=== PATIENT | male | born 1995 | race African-American/Black ===

== ENCOUNTER 2016-08-16 19:08 | Emergency (ER) | payer MEDICAID ==
[~2016-08-16] VITALS: Ht 170.2 cm; Wt 68.0 kg
[2016-08-16] MEDS ORDERED: ONDANSETRON HCL 4MG/2ML VIAL IV STA (19:32)
[2016-08-16] MEDS ORDERED: KETOROLAC 30MG/ML VIAL IV STA (19:32)
[2016-08-16] MEDS ORDERED: SODIUM CHLORIDE 0.9% 1,000 ML IV ONE (19:32)
[2016-08-16 20:44] LABS: ALANINE AMINOTRANSFERASE 21 IU/L (13-61); ALBUMIN 3.6 g/dL (3.4-5.0); ANION GAP 13; BASOPHILS % 1.5 % (0.0-2.0); CALCIUM 8.5 mg/dL (8.5-10.1); CARBON DIOXIDE 28 mEq/L (21-32); CHLORIDE 107 mEq/L (98-107); EOSINOPHILS % 2.7 % (0.0-5.0); ETHANOL BLOOD < 10 mg/dL; HEMATOCRIT. 42.6 % (42.0-52.0); INDEX HEMOLYSI 3 (1-3); INDEX ICTERIC 1 (1-4); INDEX LIPEMIC 2 (1-3); LYMPHOCYTES % 50.5 % (20.0-50.0); MEAN CORPUSCULAR HGB CONC 32.9 g/dL (31.0-37.0); MEAN CORPUSCULAR VOLUME 91.2 fL (80.0-94.0); MEAN PLATELET VOLUME 8.5 fl (7.4-10.4); MONOCYTES % 11.4 % (2.0-8.0); NEUTROPHILS % 33.9 % (40.0-76.0); PLATELET 204 x1000/uL (130-400); RED BLOOD CELL COUNT 4.67 mill/uL (4.7-6.1); UREA NITROGEN BLOOD 9 mg/dL (7-21); WHITE BLOOD COUNT 4.5 x1000/uL (4.5-11.0); eGFR > 60 mL/min (>60)
[2016-08-17 00:59] LABS: CLARITY URINE CLOUDY (CLEAR); COLOR URINE YELLOW (YELLOW); GLUCOSE URINE NEGATIVE (NEGATIVE); KETONES URINE TRACE (NEGATIVE); LEUKOCYTE ESTERASE URINE 1+ (NEGATIVE); NITRITE URINE NEGATIVE (NEGATIVE); OCCULT BLOOD URINE NEGATIVE (NEGATIVE); PROTEIN URINE NEGATIVE (NEGATIVE); SPECIFIC GRAVITY URINE 1.038 (1.005-1.030)
[2016-08-17 01:11] LABS: *AMPHETAMINES SCREEN URINE PRESUMTIVE POSITIVE (NEGATIVE); *BARBITURATES SCREEN URINE NEGATIVE (NEGATIVE); *BENZODIAZEPINES SCREEN URINE NEGATIVE (NEGATIVE); *COCAINE SCREEN URINE NEGATIVE (NEGATIVE); CANNABINOID URINE SCREEN PRESUMTIVE POSITIVE (NEGATIVE); ECSTASY MDMA SCREEN URINE NEGATIVE (NEGATIVE); METHADONE URINE SCREEN NEGATIVE (NEGATIVE); OPIATES URINE SCREEN NEGATIVE (NEGATIVE); PHENCYCLIDINE URINE SCREEN NEGATIVE (NEGATIVE)
[2016-08-17 01:21] LABS: SQUAMOUS EPITHELIAL CELL URINE FEW /lpf (RARE/1+); WBC URINE 25-50 /hpf (0-2)
[2016-08-17 01:22] LABS: RBC URINE 0-2 /hpf (0-2)
[2016-08-17 01:23] LABS: BACTERIA URINE NONE SEEN
[2016-08-17 13:59] VITALS: BP 117/70
== END 2016-08-17 14:16 | disposition home or self-care (01) ==
LOC: ER 21:20
DX: G43.909 Migraine, unspecified, not intractable, without status migrainosus (principal); F20.9 Schizophrenia, unspecified; F17.200 Nicotine dependence, unspecified, uncomplicated; F14.10 Cocaine abuse, uncomplicated; F12.10 Cannabis abuse, uncomplicated; F15.10 Other stimulant abuse, uncomplicated; Z59.0 Homelessness
CPT/HCPCS: 36415; 80053; 80305; 81001; 85025; 96361; 96374; 96375; 99284; G0482; J1885; J2405; J7030; 81003

== ENCOUNTER 2016-08-26 18:41 | Emergency (ER) | payer MEDICAID ==
[~2016-08-26] VITALS: Ht 170.2 cm; Wt 73.0 kg
[2016-08-26 19:09] VITALS: BP 127/76
== END 2016-08-26 20:55 | disposition left against medical advice (07) ==
LOC: ER 19:48
DX: Z53.21 Procedure and treatment not carried out due to patient leaving prior to being seen by health care provider (principal)

== ENCOUNTER 2017-05-07 00:30 | Emergency (ER) | payer MEDICAID ==
[~2017-05-07] VITALS: Ht 165.1 cm; Wt 63.0 kg
[2017-05-07 00:37] VITALS: BP 131/76
== END 2017-05-07 01:30 | disposition left against medical advice (07) ==
LOC: ER 00:30
DX: Z76.0 Encounter for issue of repeat prescription (principal); Z53.21 Procedure and treatment not carried out due to patient leaving prior to being seen by health care provider

== ENCOUNTER 2017-05-07 07:28 | Emergency (ER) | payer MEDICAID ==
[~2017-05-07] VITALS: Ht 170.2 cm; Wt 66.0 kg
[2017-05-07 07:36] VITALS: BP 131/86
== END 2017-05-07 12:30 | disposition left against medical advice (07) ==
LOC: ER 07:59
DX: Z53.21 Procedure and treatment not carried out due to patient leaving prior to being seen by health care provider (principal)

== ENCOUNTER 2017-11-22 04:30 | Emergency (ER) | payer SELFPAY ==
[~2017-11-22] VITALS: Ht 167.6 cm; Wt 65.0 kg
[2017-11-22 04:41] VITALS: BP 134/63
== END 2017-11-22 08:22 | disposition home or self-care (01) ==
LOC: ER 05:25
DX: M25.512 Pain in left shoulder (principal); F32.89 Other specified depressive episodes; F17.200 Nicotine dependence, unspecified, uncomplicated; F12.10 Cannabis abuse, uncomplicated; F15.10 Other stimulant abuse, uncomplicated
CPT/HCPCS: 99281

== ENCOUNTER 2019-06-17 18:25 | Emergency (ER) | payer MEDICAID | END 2019-06-17 20:50 | disposition left against medical advice (07) | LOC: ER 18:25 | DX: R51 Headache (principal); Z53.21 Procedure and treatment not carried out due to patient leaving prior to being seen by health care provider ==

== ENCOUNTER 2019-10-22 13:38 | Emergency (ER) | payer MEDICAID ==
[~2019-10-22] VITALS: Ht 170.2 cm; Wt 68.0 kg
[2019-10-22 14:42] LABS: CHLORIDE 107 mEq/L (98-107)
[2019-10-22 14:46] LABS: BASOPHILS % 1.5 % (0.0-2.0); EOSINOPHILS % 4.1 % (0.0-5.0); HEMATOCRIT. 40.2 % (42.0-52.0); HEMOGLOBIN. 13.5 g/dL (14.0-18.0); LYMPHOCYTES % 35.1 % (20.0-50.0); MEAN CORPUSCULAR HEMOGLOBIN 29.9 pg (28.0-32.0); MEAN CORPUSCULAR VOLUME 89.3 fL (80.0-94.0); MONOCYTES % 14.8 % (2.0-8.0); NEUTROPHILS % 44.5 % (40.0-76.0); PLATELET 255 x1000/uL (130-400); RED CELL DISTRIBUTION WIDTH 13.4 % (11.6-14.6)
[2019-10-22 14:48] LABS: ETHANOL BLOOD 35 mg/dL
[2019-10-22 15:30] LABS: CLARITY URINE CLEAR (CLEAR); COLOR URINE YELLOW (YELLOW); KETONES URINE TRACE (NEGATIVE); LEUKOCYTE ESTERASE URINE NEGATIVE (NEGATIVE); NITRITE URINE NEGATIVE (NEGATIVE); OCCULT BLOOD URINE NEGATIVE (NEGATIVE); PROTEIN URINE NEGATIVE (NEGATIVE); SPECIFIC GRAVITY URINE 1.029 (1.005-1.030)
[2019-10-22 16:04] LABS: *AMPHETAMINES SCREEN URINE PRESUMTIVE POSITIVE (NEGATIVE); CANNABINOID URINE SCREEN PRESUMTIVE POSITIVE (NEGATIVE); OPIATES URINE SCREEN NEGATIVE (NEGATIVE); PHENCYCLIDINE URINE SCREEN PRESUMTIVE POSITIVE (NEGATIVE)
[2019-10-22 16:07] LABS: *BARBITURATES SCREEN URINE NEGATIVE (NEGATIVE)
[2019-10-22 16:25] LABS: *COCAINE SCREEN URINE PRESUMTIVE POSITIVE (NEGATIVE); METHADONE URINE SCREEN NEGATIVE (NEGATIVE)
[2019-10-22 16:26] LABS: *BENZODIAZEPINES SCREEN URINE NEGATIVE (NEGATIVE)
[2019-10-22 20:01] VITALS: BP 121/69
== END 2019-10-22 20:32 | disposition home or self-care (01) ==
LOC: ER 13:38
DX: R45.851 Suicidal ideations (principal); F20.9 Schizophrenia, unspecified; Z91.14 Patient's other noncompliance with medication regimen; F14.10 Cocaine abuse, uncomplicated; F16.10 Hallucinogen abuse, uncomplicated; F15.10 Other stimulant abuse, uncomplicated; F12.10 Cannabis abuse, uncomplicated; F10.10 Alcohol abuse, uncomplicated; Y90.1 Blood alcohol level of 20-39 mg/100 ml; Z59.0 Homelessness
CPT/HCPCS: 36415; 80053; 80305; 80320; 81003; 85025; 99284; G0480

== ENCOUNTER 2020-07-11 22:13 | Emergency (ER) | payer MEDICAID, OTHER ==
[~2020-07-11] VITALS: Ht 175.3 cm; Wt 75.0 kg
[2020-07-11] MEDS ORDERED: OLANZAPINE 5MG TABLET PO SCH (23:00)
[2020-07-11 23:04] LABS: CLARITY URINE CLEAR (CLEAR); COLOR URINE YELLOW (YELLOW); KETONES URINE TRACE (NEGATIVE); LEUKOCYTE ESTERASE URINE NEGATIVE (NEGATIVE); NITRITE URINE NEGATIVE (NEGATIVE); OCCULT BLOOD URINE NEGATIVE (NEGATIVE); PH URINE 5.5 (4.5-8.0); PROTEIN URINE NEGATIVE (NEGATIVE)
[2020-07-11 23:11] LABS: BASOPHILS % 1.1 % (0.0-2.0); EOSINOPHILS % 4.5 % (0.0-5.0); HEMATOCRIT. 41.2 % (42.0-52.0); HEMOGLOBIN. 13.5 g/dL (14.0-18.0); LYMPHOCYTES % 34.5 % (20.0-50.0); MEAN CORPUSCULAR HEMOGLOBIN 29.6 pg (28.0-32.0); MEAN CORPUSCULAR VOLUME 90.6 fL (80.0-94.0); MONOCYTES % 11.7 % (2.0-8.0); NEUTROPHILS % 48.2 % (40.0-76.0); PLATELET 218 x1000/uL (130-400); RED BLOOD CELL COUNT 4.55 mill/uL (4.7-6.1); RED CELL DISTRIBUTION WIDTH 13.3 % (11.6-14.6)
[2020-07-11 23:14] LABS: *AMPHETAMINES SCREEN URINE PRESUMTIVE POSITIVE (NEGATIVE); *BARBITURATES SCREEN URINE NEGATIVE (NEGATIVE); *BENZODIAZEPINES SCREEN URINE NEGATIVE (NEGATIVE); *COCAINE SCREEN URINE NEGATIVE (NEGATIVE); METHADONE URINE SCREEN NEGATIVE (NEGATIVE); OPIATES URINE SCREEN NEGATIVE (NEGATIVE)
[2020-07-11 23:15] LABS: CANNABINOID URINE SCREEN PRESUMTIVE POSITIVE (NEGATIVE); PHENCYCLIDINE URINE SCREEN NEGATIVE (NEGATIVE)
[2020-07-11 23:19] LABS: CHLORIDE 109 mEq/L (98-107)
[2020-07-11 23:23] LABS: ETHANOL BLOOD < 10 mg/dL
[2020-07-11] MEDS: OLANZAPINE 10MG TABLET PO SCH (23:26)
[2020-07-12 09:00] VITALS: BP 112/66
== END 2020-07-12 09:08 | disposition home or self-care (01) ==
LOC: ER 22:13
DX: F20.89 Other schizophrenia (principal); R45.851 Suicidal ideations; F15.10 Other stimulant abuse, uncomplicated; F16.10 Hallucinogen abuse, uncomplicated; F12.10 Cannabis abuse, uncomplicated; Z73.6 Limitation of activities due to disability; Z91.14 Patient's other noncompliance with medication regimen
CPT/HCPCS: 36415; 80053; 80305; 80307; 80320; 80329; 81003; 85025; 93005; 99285; G0480

== ENCOUNTER 2020-10-31 16:43 | Emergency (ER) | payer OTHER ==
[~2020-10-31] VITALS: Ht 193 cm; Wt 80.0 kg
[2020-10-31 17:22] LABS: BASOPHILS % 0.6 % (0.0-2.0); EOSINOPHILS % 1.6 % (0.0-5.0); HEMATOCRIT. 40.2 % (42.0-52.0); HEMOGLOBIN. 13.6 g/dL (14.0-18.0); LYMPHOCYTES % 14.2 % (20.0-50.0); MEAN CORPUSCULAR HEMOGLOBIN 30.5 pg (28.0-32.0); MEAN CORPUSCULAR VOLUME 89.8 fL (80.0-94.0); MONOCYTES % 6.9 % (2.0-8.0); NEUTROPHILS % 76.7 % (40.0-76.0); PLATELET 180 x1000/uL (130-400); RED BLOOD CELL COUNT 4.48 mill/uL (4.7-6.1); RED CELL DISTRIBUTION WIDTH 13.1 % (11.6-14.6)
[2020-10-31 17:29] LABS: CHLORIDE 108 mEq/L (98-107)
[2020-10-31 17:34] LABS: ETHANOL BLOOD < 10 mg/dL
[2020-10-31 18:42] LABS: CLARITY URINE CLEAR (CLEAR); COLOR URINE YELLOW (YELLOW); KETONES URINE TRACE (NEGATIVE); LEUKOCYTE ESTERASE URINE NEGATIVE (NEGATIVE); NITRITE URINE NEGATIVE (NEGATIVE); OCCULT BLOOD URINE NEGATIVE (NEGATIVE); PROTEIN URINE NEGATIVE (NEGATIVE); SPECIFIC GRAVITY URINE 1.024 (1.005-1.030)
[2020-10-31 18:54] LABS: *AMPHETAMINES SCREEN URINE PRESUMTIVE POSITIVE (NEGATIVE); *BARBITURATES SCREEN URINE NEGATIVE (NEGATIVE); *BENZODIAZEPINES SCREEN URINE NEGATIVE (NEGATIVE); *COCAINE SCREEN URINE NEGATIVE (NEGATIVE); METHADONE URINE SCREEN NEGATIVE (NEGATIVE)
[2020-10-31 18:55] LABS: CANNABINOID URINE SCREEN PRESUMTIVE POSITIVE (NEGATIVE); OPIATES URINE SCREEN NEGATIVE (NEGATIVE); PHENCYCLIDINE URINE SCREEN PRESUMTIVE POSITIVE (NEGATIVE)
[2020-10-31 20:00] VITALS: BP 123/62
== END 2020-10-31 20:19 | disposition home or self-care (01) ==
LOC: ER 16:43
DX: T40.991A Poisoning by other psychodysleptics [hallucinogens], accidental (unintentional), initial encounter (principal); F20.9 Schizophrenia, unspecified; F32.9 Major depressive disorder, single episode, unspecified; F14.10 Cocaine abuse, uncomplicated; F12.10 Cannabis abuse, uncomplicated; Y92.488 Other paved roadways as the place of occurrence of the external cause
CPT/HCPCS: 36415; 80053; 80305; 80320; 80329; 81003; 85025; 99283; G0480

== ENCOUNTER 2021-01-29 16:05 | Emergency (ER) | payer OTHER ==
[~2021-01-29] VITALS: Ht 165.1 cm; Wt 70.0 kg
[2021-01-29 16:54] VITALS: BP 167/86
== END 2021-01-29 17:26 | disposition left against medical advice (07) ==
LOC: ER 16:05
DX: Z53.21 Procedure and treatment not carried out due to patient leaving prior to being seen by health care provider (principal)

== ENCOUNTER 2021-01-29 22:50 | Emergency (ER) | payer OTHER ==
[~2021-01-29] VITALS: Ht 170.2 cm; Wt 75.0 kg
[2021-01-29 23:49] LABS: BASOPHILS % 1.2 % (0.0-2.0); EOSINOPHILS % 1.8 % (0.0-5.0); HEMATOCRIT. 41.7 % (42.0-52.0); HEMOGLOBIN. 13.9 g/dL (14.0-18.0); MEAN CORPUSCULAR HEMOGLOBIN 30.2 pg (28.0-32.0); MEAN CORPUSCULAR VOLUME 90.8 fL (80.0-94.0); MONOCYTES % 14.4 % (2.0-8.0); NEUTROPHILS % 52.6 % (40.0-76.0); PLATELET 232 x1000/uL (130-400); RED BLOOD CELL COUNT 4.59 mill/uL (4.7-6.1); RED CELL DISTRIBUTION WIDTH 12.9 % (11.6-14.6)
[2021-01-29 23:58] LABS: CHLORIDE 99 mEq/L (98-107)
[2021-01-30 00:02] LABS: ETHANOL BLOOD < 10 mg/dL
[2021-01-30 00:53] LABS: CLARITY URINE CLEAR (CLEAR); COLOR URINE YELLOW (YELLOW); KETONES URINE TRACE (NEGATIVE); LEUKOCYTE ESTERASE URINE NEGATIVE (NEGATIVE); NITRITE URINE NEGATIVE (NEGATIVE); OCCULT BLOOD URINE NEGATIVE (NEGATIVE); PH URINE 5.5 (4.5-8.0); PROTEIN URINE NEGATIVE (NEGATIVE); SPECIFIC GRAVITY URINE 1.026 (1.005-1.030)
[2021-01-30 01:04] LABS: *AMPHETAMINES SCREEN URINE PRESUMTIVE POSITIVE (NEGATIVE); *BARBITURATES SCREEN URINE NEGATIVE (NEGATIVE); *BENZODIAZEPINES SCREEN URINE NEGATIVE (NEGATIVE); *COCAINE SCREEN URINE NEGATIVE (NEGATIVE)
[2021-01-30 01:05] LABS: CANNABINOID URINE SCREEN PRESUMTIVE POSITIVE (NEGATIVE); METHADONE URINE SCREEN NEGATIVE (NEGATIVE); OPIATES URINE SCREEN NEGATIVE (NEGATIVE); PHENCYCLIDINE URINE SCREEN NEGATIVE (NEGATIVE)
[2021-01-30] MEDS ORDERED: LORAZEPAM 2MG/ML CPJ IM ONE ×2 (05:15→05:30)
[2021-01-30] MEDS ORDERED: OLANZAPINE 5MG TABLET ODT PO SCH (09:00)
[2021-01-30 12:00] VITALS: BP 113/47
== END 2021-01-30 12:22 | disposition home or self-care (01) ==
LOC: ER 22:50
DX: R45.851 Suicidal ideations (principal); F25.8 Other schizoaffective disorders; F15.10 Other stimulant abuse, uncomplicated; F12.10 Cannabis abuse, uncomplicated; F14.10 Cocaine abuse, uncomplicated; F16.10 Hallucinogen abuse, uncomplicated; Z59.0 Homelessness
CPT/HCPCS: 36415; 80048; 80305; 80307; 80320; 80329; 81003; 85025; 96372; 99285; J2060; G0480

== ENCOUNTER 2021-01-30 15:17 | Emergency (ER) | payer OTHER ==
[~2021-01-30] VITALS: Ht 170.2 cm; Wt 78.0 kg
[2021-01-30 16:07] LABS: BASOPHILS % 1.2 % (0.0-2.0); EOSINOPHILS % 6.8 % (0.0-5.0); HEMATOCRIT. 39.8 % (42.0-52.0); HEMOGLOBIN. 13.1 g/dL (14.0-18.0); LYMPHOCYTES % 46.1 % (20.0-50.0); MEAN CORPUSCULAR HEMOGLOBIN 30.1 pg (28.0-32.0); MEAN CORPUSCULAR VOLUME 91.4 fL (80.0-94.0); MONOCYTES % 12.8 % (2.0-8.0); NEUTROPHILS % 33.1 % (40.0-76.0); PLATELET 196 x1000/uL (130-400); RED BLOOD CELL COUNT 4.35 mill/uL (4.7-6.1)
[2021-01-30 16:15] LABS: CHLORIDE 105 mEq/L (98-107)
[2021-01-30 16:19] LABS: ETHANOL BLOOD < 10 mg/dL
[2021-01-30 20:32] LABS: CLARITY URINE CLEAR (CLEAR); COLOR URINE YELLOW (YELLOW); KETONES URINE NEGATIVE (NEGATIVE); LEUKOCYTE ESTERASE URINE NEGATIVE (NEGATIVE); NITRITE URINE NEGATIVE (NEGATIVE); OCCULT BLOOD URINE NEGATIVE (NEGATIVE); PROTEIN URINE NEGATIVE (NEGATIVE); SPECIFIC GRAVITY URINE 1.028 (1.005-1.030); UROBILINOGEN URINE 0.2 E.U./dL (0.2-1.0)
[2021-01-30 20:40] LABS: METHADONE URINE SCREEN NEGATIVE (NEGATIVE); OPIATES URINE SCREEN NEGATIVE (NEGATIVE)
[2021-01-30 20:41] LABS: *AMPHETAMINES SCREEN URINE PRESUMTIVE POSITIVE (NEGATIVE); *BARBITURATES SCREEN URINE NEGATIVE (NEGATIVE); *BENZODIAZEPINES SCREEN URINE NEGATIVE (NEGATIVE); *COCAINE SCREEN URINE NEGATIVE (NEGATIVE); CANNABINOID URINE SCREEN PRESUMTIVE POSITIVE (NEGATIVE); PHENCYCLIDINE URINE SCREEN NEGATIVE (NEGATIVE)
[2021-01-31] MEDS ORDERED: OLANZAPINE 5MG TABLET PO SCH (01:00)
[2021-01-31 04:00] VITALS: BP 121/69
[2021-01-31] MEDS ORDERED: BUPROPION HCL 75MG TABLET PO SCH (09:00)
== END 2021-01-31 04:48 | disposition home or self-care (01) ==
LOC: ER 15:17
DX: R26.9 Unspecified abnormalities of gait and mobility (principal); F20.9 Schizophrenia, unspecified; F15.10 Other stimulant abuse, uncomplicated; R45.851 Suicidal ideations; R45.850 Homicidal ideations; Z75.1 Person awaiting admission to adequate facility elsewhere; F31.9 Bipolar disorder, unspecified; F41.9 Anxiety disorder, unspecified; F12.10 Cannabis abuse, uncomplicated; F14.10 Cocaine abuse, uncomplicated; Z59.0 Homelessness
CPT/HCPCS: 36415; 80053; 80305; 80307; 80320; 80329; 81003; 85025; 87426; 99283; G0480